=== PATIENT | female | born 1940 | race Caucasian/White ===

== ENCOUNTER 2024-06-20 04:30 | Emergency (ER) | payer BC, SELFPAY ==
[2024-06-20 04:30] VITALS: BMI 24.5
[2024-06-20 04:47] VITALS: BP 179/77; PULSE 66; RESP 18; TEMP 36.4; O2SAT 96
--- NOTE | 2024-06-20 04:56 | EKG_ITS ---
[facility] Test Date: 2024-06-20 Pat Name: TOMMY CABA Department: Room: - Gender: Female Submersible Pilot: : 1940 Requested By: Reg Proctor ([facility]) Order Number: [id number] Reading MD: Reg Proctor ([facility]) Measurements Intervals [place] Rate: 59 P: 75 OK: 167 QRS: 34 QRSD: 74 T: 76 QT: 403 QTc: 401 Interpretive Statements SINUS BRADYCARDIA Compared to ECG 08/18/2018 08:30:37 Sinus rhythm no longer present /store/[id number]
--- NOTE | 2024-06-20 04:56 | XR_ITS ---
Examination: CT brain head without contrast. 2-D sagittal coronal reconstructions Date and time of exam:June 20, 2024 0508 hrs. Indications: Onset headache vomiting and dizziness today CTDI: vol (mGy):48.20 DLP: (mGycm):916 Technique: Multiple CT axial sections of the brain have been obtained, 5 mm slice thickness. Contrast has not been administered. 2-D sagittal, coronal reconstructions have been obtained Low dose protocols were performed. One or more of the following dose reduction techniques were used; automated exposure control, adjustment of the mA and/or KV according to patient size, use of iterative reconstruction technique. Findings: No significant ventricular enlargement. Intra-axial or extra-axial hemorrhage density is not seen. No mass effect or midline shift Basal cisterns are not remarkable. Fourth ventricle is midline. Cranial vault intact. Significant chronic right maxillary sinus disease Impression: Negative for acute hemorrhage, mass effect or midline shift Advise clinical correlation and follow-up accordingly
--- NOTE | 2024-06-20 04:58 | XR_ITS ---
Examination: CT abdomen and pelvis without contrast. Coronal 3-D reconstructions. Sagittal 2-D reconstructions. Date and time of exam:June 20, 2024 0509 hrs. Indications: Abdominal pain vomiting and dizziness beginning today CTDI: vol (mGy): 13.41 DLP: (mGycm): 644 Technique: Axial images of the abdomen have been obtained, 3 mm slice thickness Intravenous contrast material has not been administered. Low dose protocols were performed. One or more of the following dose reduction techniques were used; automated exposure control, adjustment of the mA and/or KV according to patient size, use of iterative reconstruction technique. Findings: Focal asymmetric density in the lateral right breast, 23 mm, axial image 4 No focal liver or splenic lesions No gallstones No pancreatic mass 3.6 cm lateral left renal cyst Bilateral 1 to 2 mm renal calculi, no hydronephrosis or ureteral calculi Heavy abdominal aortic calcification Normal appendix No bowel obstruction No pelvic mass Urinary bladder intact Significant osteopenia Mild prolapse of pelvic contents Impression: 23 mm focal lateral right breast asymmetry, recommend bilateral breast sonography follow-up Nonobstructing bilateral renal calculi Normal appendix
--- NOTE | 2024-06-20 04:59 | PD.EDRME ---
Rapid Medical Screening Exam RME Arrival date/time: 06/20/24 04:30 84-year-old female presents emergency department complaining of dizziness, vomiting, generalized weakness, and epigastric pain that started this morning. Chief Complaint: Nausea/Vomiting/Diarrhea Time Seen by Provider: 06/20/24 04:46 Vital signs: Vital Signs Temperature 97.6 F 06/20/24 04:47 Pulse Rate 66 06/20/24 04:47 Respiratory Rate 18 06/20/24 04:47 Blood Pressure 179/77 H 06/20/24 04:47 Pulse Oximetry (%) 96 06/20/24 04:47 Oxygen Delivery Method Room Air 06/20/24 04:47 Vital signs reviewed by provider: Yes
[2024-06-20] MEDS: ONDANSETRON ODT 4 MG TABRAP PO (05:03)
--- NOTE | 2024-06-20 05:26 | PRELIM_ITS ---
CT scan of the head without intravenous contrast (axial sections with sagittal and coronal reformats) June 20, 2024 0508 hours Clinical history: Dizziness Comparison: No prior study is available for comparison. Findings:There is no evidence of intracranial hemorrhage, mass effect or midline shift. T here are periventricular white matter hypodensities, compatible with chronic small vessel ischemia. T here is mild volume loss. The calvarium is unremarkable. There is mild mucosal thickening in the righ t maxillary sinus. The mastoid air cells and the other visualized paranasal sinuses are clear.Impress ion:No evidence of intracranial hemorrhage, mass effect or midline shift.Periventricular chronic smal l vessel ischemia and volume loss. Report Electronically Signed By: Kathie Hargrove 06/20/2024 5:25:56 AM [ EST]
--- NOTE | 2024-06-20 05:50 | PRELIM_ITS ---
CT scan of the abdomen and pelvis without intravenous contrast (axial sections with sagittal and amalia nal reformats) June 20, 2024 0509 hours Clinical History: Abdominal pain Comparison: No prior stud y is available for comparison. Findings:Bibasilar dependent atelectasis is present. A small hiatal h ernia is present. There are small nonobstructing calculus in the bilateral kidneys.There is a left re nal cyst, measuring 3 cm. The liver, gallbladder, pancreas, spleen and adrenals are unremarkable on t his noncontrast study.No evidence of bowel obstruction. A moderate amount of fecal material is presen t in the colon. The appendix is within normal limits (coronal images 68/63). There is no mesenteric o r retroperitoneal adenopathy.The urinary bladder is unremarkable. There is no free fluid or free air. Mild degenerative changes are identified in the spine. There is scoliosis of the thoracic spine with convexity to the right.Impression:No evidence of bowel obstruction, free air or abscess. Other findin gs as described above. Report Electronically Signed By: Kathie Hargrove 06/20/2024 5:49:25 AM [EST]
[2024-06-20 06:26] LABS: Collection Type, Urine Clean Catch
[2024-06-20 06:54] LABS: Alanine Aminotransferase 20 U/L (10-49); Albumin, Serum 4.5 gm/dL (3.4-4.8); Albumin/Globulin Ratio 1.6 (1.2-2.2); Alkaline Phosphatase 81 U/L (46-116); Anion Gap 6 (7-16); Aspartate Amino Transferase 32 U/L (0-34); BUN/Creatinine Ratio 19 Ratio (12-20); Bilirubin,Total 0.6 mg/dL (0.3-1.2); Blood Urea Nitrogen 15 mg/dL (9-23); Calcium 9.8 mg/dL (8.3-10.6); Calcium (Corrected) 9.8 mg/dL (8.5-10.1); Carbon Dioxide 29.6 mMol/L (20.0-31.0); Chloride 106 mMol/L (98-107); Creatinine (Component) 0.8 mg/dL (0.6-1.3); Estimated Creatinine Clearance 44.7 mL/min (>60); Globulin 2.8 gm/dL (2.3-3.5); Glucose 120 mg/dL (74-106); Lipase 39 U/L (12-53); Osmolality,Calculated 284 (275-295); Potassium 4.1 mMol/L (3.4-5.1); Sodium 142 mMol/L (136-145); Total Protein 7.3 gm/dL (5.7-8.2); Troponin I < 0.020 ng/mL (0.0-0.045); eGFR > 60 See Note
[2024-06-20 07:04] LABS: Bilirubin,Urine Negative (Negative); Blood,Urine Negative (Negative); Clarity,Urine Clear (Clear/Hazy); Color,Urine Lt-Yellow (Lt Yel-Yel); Culture Indicated,Urine Not Indicated; Glucose, Urine Negative (Negative); Ketones,Urine Negative (Negative); Leukocyte Esterase,Urine Negative (Negative); Nitrite,Urine Negative (Negative); PH,Urine 6.5 (5.0-7.0); Protein,Urine Negative (Neg - Trace); RBC,Urine 4 /hpf (0-3); Squamous Epithelial Cell,Urine 2 /hpf (0-5); Urobilinogen,Urine Negative mg/dL (0.0-1.0); WBC,Urine 1 /hpf (0-5)
[2024-06-20 07:06] LABS: Basophils % (Auto) 1 % (0-2.5); Eosinophils % (Auto) 0 % (0-10); Hematocrit 46.6 % (36.0-46.0); Hemoglobin 15.7 g/dL (12.0-16.0); Immature Granulocytes % (Auto) 0 % (0-0); Immature Granulocytes Auto 0.02 Thou/mm3 (0.00-0.00); Lymphocytes # (Auto) 0.9 Thou/mm3 (1.0-4.8); Lymphocytes % (Auto) 14 % (10-50); Mean Corpuscular HGB Conc 33.7 g/dl (31.0-37.0); Mean Corpuscular Hemoglobin 29.5 pg (25.0-35.0); Mean Corpuscular Volume 88 fL (80-100); Monocytes # (Auto) 0.3 Thou/mm3 (0.0-0.8); Monocytes % (Auto) 4 % (0-12); Neutrophils # (Auto) 4.9 Thou/mm3 (1.8-7.7); Neutrophils % (Auto) 80 % (37-80); Nucleated Red Blood Cell % 0 /100 WBC (0); Platelet Count 240 Thou/mm3 (140-440); Red Blood Count 5.32 Miln/mm3 (4.00-5.20); White Blood Count 6.1 Thou/mm3 (3.6-11.0)
[2024-06-20 07:53] VITALS: BP 165/73; PULSE 85; RESP 18; TEMP 37; O2SAT 95
--- NOTE | 2024-06-20 07:54 | EDNOTE_ITS ---
Nausea/Vomit./Diarrhea-RME/HPI General Chief complaint: Nausea/Vomiting/Diarrhea Stated complaint: VOMITING, DIZZINESS Time Seen by Provider: 06/20/24 04:46 Source: patient Arrival date/time: 06/20/24 04:30 84-year-old female with a history of hyperlipidemia presents to the emergency room with a chief complaint of mild 5 out of 10 epigastric pain, vomiting, dizziness x 1 day Mode of arrival: ambulatory Limitations: no limitations RME / HPI RME / HPI Narrative: 06/20/24 04:30 84-year-old female presents emergency department complaining of dizziness, vomiting, generalized weakness, and epigastric pain that started this morning. Related Data Home Medications ?Medication ?Instructions ?Recorded ?Confirmed cholecalciferol (vitamin D3) 25 25 mcg PO QDAY 06/18/22 06/18/22 mcg (1,000 unit) chewable tablet (Vitamin D3) omega-3 fatty acids 1 cap PO QDAY 06/18/22 06/18/22 simvastatin 20 mg tablet 20 mg PO QDAY 06/18/22 06/18/22 Previous Rx's ?Medication ?Instructions ?Recorded ondansetron 4 mg disintegrating 4 mg PO Q8H PRN nausea and 06/20/24 tablet vomiting #14 tabs Allergies Allergy/AdvReac Type Severity Reaction Status Date / Time NKA* Allergy Uncoded 06/20/24 04:31 Review of Systems Review of Systems Systems Reviewed: All systems reviewed, normal except as documented Constitutional Constitutional: Reports system reviewed and no additional complaints, except as documented, Denies fatigue, Denies fever(s), Denies headache(s) and Denies weakness Eyes Eyes: Reports system reviewed and no additional complaints, except as documented, Denies blurry vision and Denies change in vision ENT Ears, Nose, Mouth, and Throat: Reports system reviewed and no additional complaints, except as documented, Denies otalgia, Denies headache(s), Denies nasal congestion, Denies throat swelling and Reports vertigo Cardiovascular Cardiovascular: Reports system reviewed and no additional complaints, except as documented, Denies chest pain, Denies dyspnea and Denies dyspnea on exertion Respiratory Respiratory: Reports system reviewed and no additional complaints, except as documented, Denies chest congestion, Denies cough, Denies dyspnea, Denies dyspnea on exertion and Denies wheezing Gastrointestinal Gastrointestinal: Reports system reviewed and no additional complaints, except as documented, Denies abdominal pain, Reports cramping, Reports dyspepsia, Reports nausea and Reports vomiting Genitourinary Genitourinary: Reports system reviewed and no additional complaints, except as documented Musculoskeletal Musculoskeletal: Reports system reviewed and no additional complaints, except as documented and Denies back pain Integumentary/Breasts Skin/Breast: Reports system reviewed and no additional complaints, except as documented and Denies wounds Neurologic Neurologic: Reports system reviewed and no additional complaints, except as documented, Denies confusion, Denies headache(s), Denies lack of coordination, Reports vertigo and Denies weakness Psychiatric Psychiatric: Reports system reviewed and no additional complaints, except as documented, Denies anxiety, Denies confusion, Denies depression, Denies paranoia, Denies suicidal ideation and Denies tactile hallucinations Endocrine Endocrine: Reports system reviewed and no additional complaints, except as documented and Denies fatigue Hematologic/Lymphatic Hematologic/Lymphatic: Reports system reviewed and no additional complaints, except as documented and Denies lymphadenopathy Allergic/Immunologic Allergic/Immunologic: Reports system reviewed and no additional complaints, except as documented, Denies throat swelling, Denies urticaria and Denies wheezing Past Medical History Past Medical History NEUROLOGIC: Negative Neurological Disorders or Seizures CARDIAC: Positive Cardiac Disorders and Hypercholesterolemia (PO MED); Negative Congestive Heart Failure RESPIRATORY: Positive Pneumonia ( CHILD); Negative Chronic Obstructive Pulmonary Disease (COPD) GASTROINTESTINAL: Positive Gastrointestinal Disorders and Gastroesophageal Reflux Disease (HX) GENITOURINARY: Negative Genitourinary Disorders or Renal Disease REPRODUCTIVE: Positive Previous Pregnancies ( SAB 1, ECTOPIC) MUSCULOSKELETAL: Positive Musculoskeletal Disorders and Fractures (JAW) ENT: Positive Cataracts (X2) ENDOCRINE: Negative Endocrine Disorders or Diabetes Mellitus Type 1 HEMATOLOGIC: Negative Blood Disorders OTHER HISTORY: 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); Negative Autoimmune Disease, Blood Transfusion Reaction, Anesthesia Reactions, MRSA, Clostridium Difficile or Cancer Family History FAMILY HISTORY: Negative Family Cardiac Disorders Surgical History SURGICAL: Positive Tonsillectomy, Abdominal Surgery (EXPLORATORY LAP DUE TO PIN WORMS-APPENDIX REMOVED) and Bowel Surgery (HIATAL HERNIA) Social History SMOKING STATUS: Never smoker ED Exam General Limitations: Present no limitations General appearance: Present alert and in no apparent distress Head Head exam: Present atraumatic, normocephalic and normal inspection Eye Eye exam: Present normal appearance, PERRL and EOMI ENT ENT exam: Present normal exam, normal oropharynx and mucous membranes moist Neck Neck exam: Present normal inspection, full ROM and trachea midline Chest Chest inspection: Present normal inspection and symmetric chest wall rise Respiratory Respiratory exam: Present normal lung sounds bilaterally; Absent respiratory distress, wheezes, stridor, accessory muscle use or prolonged expiratory phase Cardiovascular Cardiovascular exam: Present regular rate, normal rhythm and normal heart sounds Abdominal Exam Abdominal exam: Present soft, tenderness and normal bowel sounds; Absent Hunt's sign, Rovsing's sign or tenderness at McBurney's Point Abdominal tenderness: Present epigastrium and mild Extremities Exam Extremities exam: Present normal inspection and full ROM Back Exam Back exam: Present normal inspection and full ROM Neurological Exam Neurological exam: Present alert, oriented X3, CN II-XII intact, normal gait and reflexes normal Expanded Neurological Exam Patient oriented to: Present person, place and time Speech: Present fluid speech Cranial nerves: Normal: EOM function (II, III, IV, ), facial sensation (V) and facial palsy (VII) Cerebellar function: Present normal gait Motor strength - LUE: 5/5 Motor strength - RUE: 5/5 Motor strength - LLE: 5/5 Motor strength - RLE: 5/5 Coma scale eye opening: spontaneous Coma scale motor response: obeys commands Coma scale verbal response: oriented Coma scale total: 15 Psychiatric Psychiatric exam: Present normal affect and normal mood Skin Skin exam: Present warm, dry, intact and normal color Course Quality Measures none Orders Category Date Time Status Bedside Influenza A&B Antigen Test NOW Care 06/20/24 05:01 Completed EKG (ED ONLY) *Do not use* NOW Care 06/20/24 04:[address] abdomen pelvis wo con Stat Exams 06/20/24 04:[address] head/brain wo con Stat Exams 06/20/24 04:56 Completed EKG (ED Only) Stat Exams 06/20/24 04:56 Draft CBC Stat Lab 06/20/24 06:10 Completed CMP [Comprehensive Metabolic Panel] Stat Lab 06/20/24 06:10 Completed Lipase Stat Lab 06/20/24 06:10 Completed Troponin I Stat Lab 06/20/24 06:10 Completed Urinalysis, C/S if Indicated Stat Lab 06/20/24 06:16 Completed Ondansetron Odt [Zofran Odt] Med 06/20/24 04:58 Discontinued 4 mg PO X1 ONE Vital Signs Vital signs: Vital Signs Temperature 97.6 F 06/20/24 04:47 Pulse Rate 66 06/20/24 04:47 Respiratory Rate 18 06/20/24 04:47 Blood Pressure 179/77 H 06/20/24 04:47 Pulse Oximetry (%) 96 06/20/24 04:47 Oxygen Delivery Method Room Air 06/20/24 04:47 Nausea/Vomiting/Diarrhea MDM Narrative MDM Narrative:: 84-year-old female with a history of hyperlipidemia presents to the emergency room with a chief complaint of mild 5 out of 10 epigastric pain, vomiting, dizziness x 1 day. Clinically the patient appears nontoxic and in no apparent distress. Physical examination shows a normal neurological exam the patient is a GCS of 15 alert and oriented x 4 patient has a normal steady gait. Pupils are PERRLA EOMs are intact. Lung sounds are clear bilaterally. Patient has some mild 5 out of 10 epigastric pain with palpation. There is no right lower quadrant right upper quadrant pain or tenderness with palpation. CT of the abdomen and pelvis was completed and was negative for any acute findings however it did find some right breast asymmetry. Patient states she is already aware of this and Dr Panchal is working this situation up. Patient was given a copy of the CT results. CT of the head and brain was completed and was negative for any acute findings. CBC and CMP were within normal limits urinalysis was within normal limits patient was discharged and educated to follow-up with primary care provider and return to the emergency room for any evidence of worsening signs or symptoms Patient data External records reviewed:: [facility] previous records Clinical information provided by:: patient Social determinants that could affect healthcare access:: none Patient has the following chronic illnesses:: Hyperlipidemia How is presenting disease/condition affected by chronic disease/condition?: no chronic disease Evaluation data The following diagnostics were reviewed and interpreted by me:: lab results and radiology exam(s) Lab and/or radiology exams considered but not ordered:: Labs and radiology exams considered and ordered Interpretation Summary: CT abdomen and pelvis-Findings: Focal asymmetric density in the lateral right breast, 23 mm, axial image 4 No focal liver or splenic lesions No gallstones No pancreatic mass 3.6 cm lateral left renal cyst Bilateral 1 to 2 mm renal calculi, no hydronephrosis or ureteral calculi Heavy abdominal aortic calcification Normal appendix No bowel obstruction No pelvic mass Urinary bladder intact Significant osteopenia Mild prolapse of pelvic contents Impression: 23 mm focal lateral right breast asymmetry, recommend bilateral breast sonography follow-up Nonobstructing bilateral renal calculi Normal appendix CT head brain-no mass effect midline shift or hemorrhage Medications / Prescriptions Medications / Prescriptions considered but not ordered:: Medication given Medication administrations:: Medication Administration History Discontinued Medications Ondansetron HCl (Ondansetron Odt 4 Mg Tabrap) 4 mg PO X1 ONE; Protocol Stop: 06/20/24 04:59 Last Admin: 06/20/24 05:03 Dose: 4 mg Documented By: SF Rx given Consultations Consultation(s) initiated? (list below): No Diagnosis Nausea Differential Diagnosis: food poisoning, gastroenteritis and dehydration Most likely diagnosis given after review of the tests above:: Gastroenteritis Admission Indicated Admission indicated?: not indicated Admission Request Was there a request for admission?: No Disposition Plan Disposition Plan: Discharge Discharge Attestation Discharge Attestation: The patient and all family members were given an opportunity to ask questions and understood the discharge instructions. Discharge instructions specifically effects, indications for sooner follow up or return to the emergency department, and the expected course of current diagnosis. Patient condition: Stable Discharge Plan Plan Patient Disposition: HOME (Self Care) Disposition Comment: Stable Prescriptions/Referrals Prescriptions/Med Rec: New ondansetron 4 mg tablet,disintegrating 4 mg PO Q8H PRN (Reason: nausea and vomiting) Qty: 14 0RF No Action simvastatin 20 mg tablet 20 mg PO QDAY Patient Comments: TAKE 1 TABLET BY MOUTH EVERYDAY AT BEDTIME omega-3 fatty acids Capsule 1 cap PO QDAY cholecalciferol (vitamin D3) [Vitamin D3] 25 mcg (1,000 unit) Tablet,Chewable 25 mcg PO QDAY Referrals: Hannah Panchal MD [Primary Care Provider] - In 1 week Problem List Clinical Impression: Gastroenteritis Patient/Caregiver Discharge Instructions Education Materials: ED Gastroenteritis, Noninfectious Additional Instructions: Please follow-up with your primary care provider in the next [address] of your head and brain was completed and was negative for any acute findings. CT of your abdomen was negative for any acute findings. The radiologist did find some breast asymmetry and he does recommend an ultrasound of your breast that could be done as an outpatient setting. I attached a copy of your CT results to your discharge paperwork. For any evidence of worsening signs or symptoms please return to the emergency room immediately Print Language: Faroese Stand Alone Forms: Janae Award Info., Patient Portal Info Letter PA/KEG WASHER Supervising Physician PA/KEG WASHER Supervising Physician: Dr. Delgado
== END 2024-06-20 07:53 | disposition home or self-care (01) ==
PROVIDERS: Emergency Provider Emergency Medicine; PCP Family Medicine
DX: K52.9 Noninfective gastroenteritis and colitis, unspecified (principal); R51.9 Headache, unspecified; R42 Dizziness and giddiness; N64.89 Other specified disorders of breast; N20.0 Calculus of kidney; E78.00 Pure hypercholesterolemia, unspecified
CPT/HCPCS: 36415; 70450; 74176; 80053; 81001; 83690; 84484; 85025; 87400; 93005; 99284; Q0162

== ENCOUNTER → 2024-08-22 | Outpatient (CLI) | payer BC, SELFPAY ==
[2024-08-22 10:26] LABS: Collection Type, Urine Catheter
[2024-08-22 10:59] LABS: Bilirubin,Urine Negative (Negative); Blood,Urine Negative (Negative); Clarity,Urine Clear (Clear/Hazy); Color,Urine Lt-Yellow (Lt Yel-Yel); Culture Indicated,Urine Not Indicated; Glucose, Urine Negative (Negative); Ketones,Urine Negative (Negative); Leukocyte Esterase,Urine Negative (Negative); Nitrite,Urine Negative (Negative); PH,Urine 6.5 (5.0-7.0); Protein,Urine Negative (Neg - Trace); RBC,Urine 2 /hpf (0-3); Specific Gravity,Urine 1.017 (1.001-1.035); Squamous Epithelial Cell,Urine 1 /hpf (0-5); Urobilinogen,Urine Negative mg/dL (0.0-1.0); WBC,Urine 1 /hpf (0-5)
[2024-08-22 11:18] LABS: Basophils % (Auto) 1 % (0-2.5); Eosinophils % (Auto) 1 % (0-10); Hematocrit 48.2 % (36.0-46.0); Immature Granulocytes % (Auto) 0 % (0-0); Immature Granulocytes Auto 0.01 Thou/mm3 (0.00-0.00); Lymphocytes # (Auto) 1.4 Thou/mm3 (1.0-4.8); Lymphocytes % (Auto) 33 % (10-50); Mean Corpuscular HGB Conc 33.2 g/dl (31.0-37.0); Mean Corpuscular Hemoglobin 29.7 pg (25.0-35.0); Mean Corpuscular Volume 90 fL (80-100); Monocytes # (Auto) 0.4 Thou/mm3 (0.0-0.8); Monocytes % (Auto) 9 % (0-12); Neutrophils # (Auto) 2.5 Thou/mm3 (1.8-7.7); Neutrophils % (Auto) 57 % (37-80); Nucleated Red Blood Cell % 0 /100 WBC (0); Platelet Count 226 Thou/mm3 (140-440); RDW Standard Deviation 39.3 fL (36.4-46.3); Red Blood Count 5.38 Miln/mm3 (4.00-5.20); White Blood Count 4.3 Thou/mm3 (3.6-11.0)
[2024-08-22 11:27] LABS: Alanine Aminotransferase 63 U/L (10-49); Albumin, Serum 4.4 gm/dL (3.4-4.8); Alkaline Phosphatase 90 U/L (46-116); Anion Gap 9 (7-16); Aspartate Amino Transferase 46 U/L (0-34); BUN/Creatinine Ratio 18 Ratio (12-20); Bilirubin,Total 0.5 mg/dL (0.3-1.2); Blood Urea Nitrogen 14 mg/dL (9-23); Calcium 9.6 mg/dL (8.3-10.6); Calcium (Corrected) 9.6 mg/dL (8.5-10.1); Carbon Dioxide 29.1 mMol/L (20.0-31.0); Cardiac Risk Estimate 2.7 RATIO (3.7-5.6); Chloride 105 mMol/L (98-107); Cholesterol 147 mg/dL (132-200); Creatinine (Component) 0.8 mg/dL (0.6-1.3); Globulin 2.2 gm/dL (2.3-3.5); Glucose 93 mg/dL (74-106); HDL Cholesterol 55 mg/dL (40-60); LDL Cholesterol,Calculated 56 mg/dL (0-130); Osmolality,Calculated 285 (275-295); Potassium 4.2 mMol/L (3.4-5.1); Sodium 143 mMol/L (136-145); Total Protein 6.6 gm/dL (5.7-8.2); Triglycerides 178 mg/dL (30-150); eGFR > 60 See Note
== END | disposition home or self-care (01) ==
PROVIDERS: PCP Physician Assistant; Referring Provider Physician Assistant; Visit Provider Physician Assistant
DX: Z00.00 Encounter for general adult medical examination without abnormal findings (principal); E78.5 Hyperlipidemia, unspecified; I10 Essential (primary) hypertension
CPT/HCPCS: 36415; 80053; 80061; 81001; 85025

== ENCOUNTER → 2024-08-28 | Outpatient (CLI) | payer BC, SELFPAY ==
[2024-08-31 06:34] LABS: Fecal Globin Result NOT DETECTED (NOT DETECTED)
== END | disposition home or self-care (01) ==
LOC: SLDO 11:20
PROVIDERS: Referring Provider Physician Assistant; Visit Provider Physician Assistant
DX: Z00.00 Encounter for general adult medical examination without abnormal findings (principal); E78.5 Hyperlipidemia, unspecified; I10 Essential (primary) hypertension
CPT/HCPCS: 82274; G0328